=== PATIENT | male | born 1995 | race Two or more races ===

== ENCOUNTER 2020-10-17 15:04 | Emergency (ER) | payer OTHER ==
[~2020-10-17] VITALS: Ht 167.6 cm; Wt 59.0 kg
[2020-10-17] MEDS ORDERED: CANABIS (15:41)
== END 2020-10-17 19:03 | disposition home or self-care (01) ==
LOC: ER 15:04
DX: S80.02XA Contusion of left knee, initial encounter (principal); S80.01XA Contusion of right knee, initial encounter; S50.01XA Contusion of right elbow, initial encounter; S40.011A Contusion of right shoulder, initial encounter; V49.9XXA Car occupant (driver) (passenger) injured in unspecified traffic accident, initial encounter; Y93.89 Activity, other specified; Y92.488 Other paved roadways as the place of occurrence of the external cause; Y99.8 Other external cause status

== ENCOUNTER 2021-05-06 05:29 | Emergency (ER) | payer OTHER ==
[~2021-05-06] VITALS: Ht 167.6 cm; Wt 59.0 kg
[~2021-05-06 05:29] MED LIST: CANABIS
== END 2021-05-06 10:13 | disposition home or self-care (01) ==
LOC: ER 05:29
DX: B34.9 Viral infection, unspecified (principal); R50.9 Fever, unspecified; J02.9 Acute pharyngitis, unspecified; Z03.818 Encounter for observation for suspected exposure to other biological agents ruled out; R53.81 Other malaise

== ENCOUNTER 2022-04-17 15:59 | Emergency (ER) | payer OTHER ==
[~2022-04-17] VITALS: Ht 167.6 cm; Wt 59.0 kg
== END 2022-04-17 19:09 | disposition home or self-care (01) ==
LOC: ER 15:59
DX: S09.90XA Unspecified injury of head, initial encounter (principal); W19.XXXA Unspecified fall, initial encounter; Y93.02 Activity, running; Y92.9 Unspecified place or not applicable

== ENCOUNTER 2023-08-19 12:16 | Outpatient (CLI) | payer OTHER | END 2023-08-19 12:26 | disposition home or self-care (01) | LOC: RAD 12:16 | DX: M79.672 Pain in left foot (principal) ==